=== PATIENT | male | born 1970 | race African-American/Black ===

== ENCOUNTER 2022-01-10 05:58 | Emergency (ER) | payer MEDICAID ==
[~2022-01-10] VITALS: Ht 182.9 cm; Wt 116.0 kg
[2022-01-10] MEDS ORDERED: KETOROLAC 60MG/2ML VIAL IM ONE (07:00)
[2022-01-10] MEDS ORDERED: ACETAMINOPHEN WITH CODEINE 300/30MG TABLET PO ONE (07:00)
[2022-01-10 09:17] VITALS: BP 141/85
[2022-01-10] MEDS ORDERED: IBUP-2028 PO (09:33)
[2022-01-10] MEDS ORDERED: T3 PO (09:33)
== END 2022-01-10 10:01 | disposition home or self-care (01) ==
LOC: ER 05:58
DX: M54.59 Other low back pain (principal); R03.0 Elevated blood-pressure reading, without diagnosis of hypertension; Z85.46 Personal history of malignant neoplasm of prostate
CPT/HCPCS: 72100; 96372; 99283; J1885

== ENCOUNTER 2022-06-27 19:34 | Emergency (ER) | payer MEDICAID ==
[~2022-06-27] VITALS: Ht 182.9 cm; Wt 113.5 kg
[~2022-06-27 19:34] MED LIST: IBUP-2028 PO; IBUP-2029 MT; T3 PO
[2022-06-27] MEDS ORDERED: KETOROLAC 60MG/2ML VIAL IM STA (23:24)
[2022-06-28 00:21] VITALS: BP 142/78
[2022-06-28 00:42] LABS: CLARITY URINE CLEAR (CLEAR); COLOR URINE YELLOW (YELLOW); KETONES URINE NEGATIVE (NEGATIVE); LEUKOCYTE ESTERASE URINE NEGATIVE (NEGATIVE); NITRITE URINE NEGATIVE (NEGATIVE); OCCULT BLOOD URINE NEGATIVE (NEGATIVE); PH URINE 5.5 (4.5-8.0); PROTEIN URINE NEGATIVE (NEGATIVE)
[2022-06-28] MEDS ORDERED: NAPR-681 PO (00:57)
[2022-06-28] MEDS ORDERED: T3 PO (00:57)
== END 2022-06-28 01:06 | disposition home or self-care (01) ==
LOC: ER 19:34
DX: M54.42 Lumbago with sciatica, left side (principal); Z85.46 Personal history of malignant neoplasm of prostate
CPT/HCPCS: 81003; 96372; 99283; J1885

== ENCOUNTER 2023-06-17 11:08 | Emergency (ER) | payer MEDICAID ==
[~2023-06-17] VITALS: Ht 182.9 cm; Wt 108.9 kg
[~2023-06-17 11:08] MED LIST changes: +IBUP-2030 MT; +NAPR-681 PO
[2023-06-17 11:33] VITALS: TEMP 98.5; O2SAT 98
[2023-06-17 13:00] VITALS: BP 146/72; PULSE 74; RESP 16
[2023-06-17] MEDS ORDERED: IBUPROFEN 600MG TABLET PO ONE (13:00)
[2023-06-17] MEDS ORDERED: IBUP-2029 MT (13:46)
== END 2023-06-17 14:09 | disposition home or self-care (01) ==
LOC: ER 11:08
DX: M72.2 Plantar fascial fibromatosis (principal); Z79.899 Other long term (current) drug therapy; Z85.9 Personal history of malignant neoplasm, unspecified
CPT/HCPCS: 73620; 99283